=== PATIENT | male | born 1995 ===

== ENCOUNTER 2017-07-26 01:37 | Emergency (ER) | payer BC ==
[~2017-07-26] VITALS: Ht 185.4 cm; Wt 76.0 kg
[2017-07-26 01:38] VITALS: BP 139/65; PULSE 100; RESP 20; TEMP 97.7; O2SAT 100
--- NOTE | 2017-07-26 02:01 | PD ---
HPI Chief Complaint: Fall Time Seen by Provider: 01:55 Travel History International Travel<30 days: No Contact w/Intl Traveler<30days: No Traveled to known affect area: No History of Present Illness HPI 22-year-old male presents to the emergency department by private transportation for evaluation of injuries associated with a non-syncopal strep and fall just prior to arrival to the emergency department. Patient has pain localized to his left clavicle and shoulder. Patient states he did not hit his head did not have loss of consciousness did not injure his neck did not injure his back does not have chest pain does not have chest wall pain does not have rib pain does not have shortness of breath does not have abdominal pain does not have pelvic pain or lower extremity pain patient denies any upper extremity or lower extremity numbness tingling or weakness. Patient is right-handed and denies previous clavicle or shoulder injury of the left upper extremity. Patient's tetanus status is current. Patient does have some superficial abrasions to the posterior left shoulder and the left clavicle no puncture wound is noted. No open laceration is identified. [facility] Past Medical History Narrative Medical Negative past medical history negative surgical history; nursing notes reviewed Medical History: Denies Significant Hx ?: Not Past Surgical History Surgical History: No Previous Surgery Social History Alcohol Use: No Tobacco Use: No Substance Use: No Allergies-Medications (Allergen,Severity, Reaction): Coded Allergies: No Known Allergies (Unverified , 07/26/17) Reported Meds & Prescriptions Reported Meds & Active Scripts Active No Active Prescriptions or Reported Medications Review of Systems Except as stated in HPI: all other systems reviewed are Neg General / Constitutional: No: Fever Eyes: No: Visual changes HENT: No: Headaches, Neck Pain Cardiovascular: No: Chest Pain or Discomfort Respiratory: No: Shortness of Breath Gastrointestinal: No: Abdominal Pain Genitourinary: No: Flank Pain Musculoskeletal: No: Myalgias, Arthralgias Physical Exam Narrative GENERAL: Well-developed well-nourished male in no acute distress no respiratory distress; GCS 15 SKIN: Warm and dry. Superficial abrasion to the left posterior shoulder. HEAD: Atraumatic. Normocephalic. No scalp soft tissue swelling no tenderness no bony abnormalities no abrasion or laceration EYES: Pupils equal and round. Extraocular muscles intact. No scleral icterus. No injection or drainage. ENT: No nasal bleeding or discharge. Mucous membranes pink and moist. Airway is patent. NECK: Trachea midline. No JVD. No midline tenderness to direct palpation along the cervical spine and no bony step-off no paracervical muscle spasm. CARDIOVASCULAR: Regular rate and rhythm. Chest wall: No anterior chest wall tenderness abrasion or ecchymosis except is a superficial ecchymotic changes to the mid left clavicle. RESPIRATORY: No accessory muscle use. Clear to auscultation. Breath sounds equal bilaterally. GASTROINTESTINAL: Abdomen soft, non-tender, nondistended. Hepatic and splenic margins not palpable. MUSCULOSKELETAL: Extremities without clubbing, cyanosis, or edema. No obvious deformities. No deformities mild tenderness to palpation of the left shoulder with decreased range of motion secondary to clavicle pain reportedly no step- off deformity distally extremity is neurovascular tendon intact. Radial and ulnar pulses are 2+ to palpation capillary refill is brisk and less than 2 seconds per digit NEUROLOGICAL: Awake and alert. GCS 15. No obvious cranial nerve deficits. Motor grossly within normal limits. Five out of 5 muscle strength in the arms and legs. Normal speech. PSYCHIATRIC: Appropriate mood and affect; insight and judgment normal. Data Data Last Documented VS Vital Signs Date Time Temp Pulse Resp B/P (MAP) Pulse Ox O2 Delivery O2 Flow Rate FiO2 07/26/17 01:38 97.7 100 20 139/65 (89) 100 Room Air Orders Orders Clavicle (07/26/17 ) Ice/Cold Pack (07/26/17 01:55) Shoulder, Limited(2vws) (07/26/17 ) Support Splint (07/26/17 02:30) Ibuprofen (Motrin) (07/26/17 02:45) Oxycodone-Acetamin 5-325 Mg (Percocet (07/26/17 02:45) Mandatory Outpatient Referral (07/26/17 02:31) [facility] Medical Decision Making Medical Screen Exam Complete: Yes Emergency Medical Condition: Yes Medical Record Reviewed: Yes Interpretation(s) Left clavicle fracture with displacement Differential Diagnosis Contusion sprain strain fracture subluxation dislocation Narrative Course ice pack applied to the left clavicle area; imaging studies ordered Left shoulder reveals no shoulder abnormality does identify a distal third shaft fracture of the left clavicle with displacement, left clavicle x-ray did identifies a displaced minimally bayonet overlapping fracture of the distal one third of the left clavicle no evidence of pneumothorax on underlying chest film. Sling applied. Patient will need to follow-up with the orthopedist as an outpatient as this may require surgical intervention. Patient is informed of imaging results and recommendation for close follow-up with with the pedis and mandatory referral has been ordered. Sling applied and patient given ibuprofen times one dose and Percocet 5/325 times one Diagnosis Primary Impression: Clavicle fracture, shaft Qualified Codes: S42.022A - Displaced fracture of shaft of left clavicle, initial encounter for closed fracture Referrals: Orthopaedic Surgeon 2 days Call office on Thursday to schedule follow-up appointment with orthopedist front desk coordinator orthopedist is Dr. Rich Patient Instructions: General Instructions, Narcotic given in the ED Additional Instructions: Wear sling at all times until orthopedic follow up Follow-up with orthopedist call office on Thursday to schedule follow-up appointment Return to the emergency department for any concerns or change in condition May take ibuprofen 600 mg as often as every 6 hours as needed for pain associated inflammation May take prescription Percocet as prescribed as needed for pain greater than 5/ 10 intensity Return to the emergency for for any concerns or change in condition Avoid use of left upper extremity Use ice pack intermittently for first 12-24 hours to decrease soft tissue swelling as needed. Med/Other Pt SpecificInfo: Prescription(s) given Scripts Ondansetron Odt (Zofran Odt) 4 Mg Tab 4 MG SL Q6HR Y for Nausea/Vomiting, #7 TAB 0 Refills Prov: Vilma Rushing MD 07/26/17 Oxycodone-Acetaminophen (Percocet) 5-325 mg Tab 1 TAB PO Q6H Y for PAIN, #10 TAB 0 Refills Prov: Vilma Rushing MD 07/26/17 Ibuprofen (Ibuprofen) 600 Mg Tab 600 MG PO Q6H Y for Pain/Inflammation, #12 TAB 0 Refills Prov: Vilma Rushing MD 07/26/17 Disposition: 01 DISCHARGE HOME Condition: Stable Vilma Rushing MD Jul 26, 2017 02:01
--- NOTE | 2017-07-26 02:23 | RADRPT ---
EXAM DATE/TIME: 07/26/2017 02:06 [facility] COMPARISON: No previous studies available for comparison. INDICATIONS : Pain and deformity of the left clavicle from trauma sustained in a fall. MEDICAL HISTORY : None. SURGICAL HISTORY : None. ENCOUNTER: Initial ACUITY: 1 day PAIN SCORE: 10/10 LOCATION: Left clavicle FINDINGS: 2 views of the left clavicle demonstrate a fracture in the clavicle at the junction of the middle and distal thirds. The distal fragment is displaced inferiorly by slightly greater than one full shaft w idth. Acromioclavicular joint is intact and coracoclavicular distance is within normal limits. There is adjacent soft tissue swelling. Visualized left chest demonstrates no acute finding. CONCLUSION: There is a fracture of the left clavicle with slightly greater than one full shaft width of depressio n of the distal fragment. Rivas Quinn MD on July 26, 2017 at 2:20 Board Certified Radiologist. This report was verified electronically.
--- NOTE | 2017-07-26 02:24 | RADRPT ---
EXAM DATE/TIME: 07/26/2017 02:08 [facility] COMPARISON: No previous studies available for comparison. INDICATIONS : Pain and deformity of the left clavicle from trauma sustained in a fall. MEDICAL HISTORY : None. SURGICAL HISTORY : None. ENCOUNTER: Initial ACUITY: 1 day PAIN SCORE: 10/10 LOCATION: Left Clavicle FINDINGS: 2 views of the left shoulder demonstrate a fracture of the left clavicle of the junction of the middl e and distal third with a full shaft width of depression of the distal fragment. Otherwise, no acute finding is identified. Visualized left chest demonstrates no abnormality. CONCLUSION: There is a displaced fracture of the left clavicle. Rivas Quinn MD on July 26, 2017 at 2:22 Board Certified Radiologist. This report was verified electronically.
[2017-07-26] MEDS ORDERED: IBUP-232 PO (02:33)
[2017-07-26] MEDS ORDERED: ZOFR4TAB3 SL (02:33)
[2017-07-26] MEDS ORDERED: PERC5TAB12 PO (02:33)
[2017-07-26] MEDS ORDERED: IBUPROFEN 600 MG TAB PO ONE (02:45)
[2017-07-26] MEDS ORDERED: oxyCODONE/ACETAMINOPHEN 5 MG/325 MG TAB PO ONE (02:45)
== END 2017-07-26 03:43 | disposition home or self-care (01) ==
LOC: NEPC 01:37
DX: S42.022A Displaced fracture of shaft of left clavicle, initial encounter for closed fracture (principal); S40.212A Abrasion of left shoulder, initial encounter; X58.XXXA Exposure to other specified factors, initial encounter
CPT/HCPCS: 73000; 73030; 99284